=== PATIENT | male | born 1995 | race American Indian/Alaskan Native ===

== ENCOUNTER 2017-05-07 09:40 | Emergency (ER) | payer OTHER ==
[2017-05-07 10:13] VITALS: BP 140/74
[2017-05-07] MEDS ORDERED: MOTRIN PO ONE (12:02)
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
== END 2017-05-07 14:00 | disposition home or self-care (01) ==
LOC: ED 09:40
DX: S39.012A Strain of muscle, fascia and tendon of lower back, initial encounter (principal); S16.1XXA Strain of muscle, fascia and tendon at neck level, initial encounter; S13.4XXA Sprain of ligaments of cervical spine, initial encounter; F12.10 Cannabis abuse, uncomplicated; Z91.013 Allergy to seafood; Z87.891 Personal history of nicotine dependence; V89.2XXA Person injured in unspecified motor-vehicle accident, traffic, initial encounter; Y93.89 Activity, other specified; Y92.89 Other specified places as the place of occurrence of the external cause; Y99.8 Other external cause status
CPT/HCPCS: 72070; 72100; 72125; 99284

== ENCOUNTER 2022-06-12 21:00 | Emergency (ER) | payer SELFPAY | END 2022-06-13 02:59 | disposition left against medical advice (07) | LOC: ED 21:00 | DX: R51.9 Headache, unspecified (principal); R07.9 Chest pain, unspecified; Z53.21 Procedure and treatment not carried out due to patient leaving prior to being seen by health care provider ==